=== PATIENT | male | born 1990 | race Caucasian/White ===

== ENCOUNTER 2019-04-10 21:06 | Emergency (ER) | payer BC ==
[2019-04-10] MEDS ORDERED: Sodium Chloride 0.9% 10 ML Syringe FLUSH PRN (22:13)
[2019-04-10] MEDS ORDERED: Acetaminophen/oxyCODONE 325-5 MG Tab PO ONE (22:16)
[2019-04-10] MEDS ORDERED: Sodium Chloride 0.9% 10 ML Syringe FLUSH ONE (22:22)
[2019-04-10] MEDS ORDERED: Iopamidol 612 MG/ML 150 ML Bottle IV SCH (22:30)
--- NOTE | 2019-04-10 23:06 | CRLCT ---
INDICATION: Abdominal pain TECHNIQUE: CT Abdomen and pelvis with i.v. contrast. Coronal and sagittal reformats were obtained. CONTRAST: 117 mL Isovue COMPARISON: None FINDINGS: Lower chest: Unremarkable. Liver: Unremarkable. Spleen: Unremarkable. Pancreas: Unremarkable. Gallbladder: Unremarkable. Kidney: Unremarkable. No kidney or ureteral stones or obstruction seen. Adrenal: Unremarkable. Bowel: Unremarkable. The appendix is normal in appearance and size. Vascular: Unremarkable. Lymph: Unremarkable. Peritoneum: Unremarkable. No pneumoperitoneum is seen. No significant ascites is noted. Pelvis: Unremarkable. Soft tissue: Unremarkable. Bone: Unremarkable for age. IMPRESSION: 1. Unremarkable with no CT correlate for the patient`s symptoms seen. Dictated by Curry Caro MD @ 04/10/2019 11:04:34 PM Please note that all CT scans at this facility use dose modulation, iterative reconstruction, and/or weight-based dosing when appropriate to reduce radiation dose to as low as reasonably achievable. Dictated by: Curry Caro MD @ 04/10/2019 23:04:37 (Electronically Signed)
--- NOTE | 2019-04-10 23:51 | EDM.PDOC ---
ED HPI GENERAL MEDICAL PROBLEM - General Chief Complaint: General Stated Complaint: HERNIA TEAR Time Seen by Provider: 04/10/19 22:10 Source of Information: Reports: Patient History Limitations: Reports: No Limitations - History of Present Illness INITIAL COMMENTS - FREE TEXT/NARRATIVE: This man said that just a couple of hours ago he bent down to pecan picker his son and when he went to raise back up he had a terrible sharp tearing sensation over the right inguinal canal area. He said it hurts very bad and he thinks he might have torn open the old hernia repair. He has not vomited. Right Groin Pain Score (Numeric/FACES): 8 - Related Data Allergies Allergy/AdvReac Type Severity Reaction Status Date / Time Sulfa (Sulfonamide Allergy Hives Verified 04/10/19 21:52 Antibiotics) Home Meds: Home Meds Gabapentin [Neurontin] 800 mg PO TID 04/10/19 [History] LORazepam [Ativan] 1 mg PO DAILY PRN 04/10/19 [History] Past Medical History Genitourinary History: Reports: Renal Calculus Neurological History: Reports: Concussion Psychiatric History: Reports: Anxiety, Depression, PTSD - Infectious Disease History Infectious Disease History: Reports: Chicken Pox - Past Surgical History HEENT Surgical History: Reports: Adenoidectomy, Myringotomy w Tube(s) GI Surgical History: Reports: Hernia Repair/Other, Other (See Below) Other GI Surgeries/Procedures: hernia repair with mesh, spericial cord repair Musculoskeletal Surgical History: Reports: Other (See Below) Other Musculoskeletal Surgeries/Procedures:: surgery on left foot ? tissue removal Social & Family History - Family History Family Medical History: Noncontributory - Tobacco Use Smoking Status *Q: Current Every Day Smoker Years of Tobacco use: 15 Packs/Tins Daily: 1 Second Hand Smoke Exposure: No - Caffeine Use Caffeine Use: Reports: Energy Drinks, Soda - Recreational Drug Use Recreational Drug Use: Yes ED ROS GENERAL - Review of Systems Review Of Systems: ROS reveals no pertinent complaints other than HPI. ED EXAM, GENERAL - Physical Exam Exam: See Below Exam Limited By: No Limitations General Appearance: Alert, WD/WN, Mild Distress Respiratory/Chest: Lungs Clear Cardiovascular: Regular Rate, Rhythm GI/Abdominal: Soft, Non-Tender (Male) Exam: Other (There is some fullness and severe tenderness to the superior approximately 3 cm of the inguinal canal. Palpate this to his abdomen feels like a little mass and is very tender. Of on digital exam nothing in the inguinal canal. Testicles are normal.). No: Testicular Tenderness (L), Testicular Tenderness (R) Extremities: Normal Inspection Course - Vital Signs Last Recorded V/S: Last Vital Signs Temp 36.5 C 04/10/19 22:04 Pulse 68 04/10/19 22:04 Resp 14 04/10/19 22:04 BP 128/68 04/10/19 22:04 Pulse Ox 100 04/10/19 22:04 - Orders/Labs/Meds Orders: Active Orders 24 hr Category Date Time Status Sodium Chloride 0.9% [Normal Saline] 73 ml Med 04/10/19 22:30 Active IV ASDIRECTED Sodium Chloride 0.9% [Saline Flush] Med 04/10/19 22:13 Active 10 ml FLUSH ASDIRECTED PRN Saline Lock Insert [OM.PC] Urgent Oth 04/10/19 22:14 Ordered Medication Orders Sodium Chloride (Normal Saline) 73 mls @ 0 mls/hr IV ASDIRECTED XUAN Last Admin: 04/10/19 22:51 Dose: 3 mls/hr Sodium Chloride (Saline Flush) 10 ml FLUSH ASDIRECTED PRN PRN Reason: Keep Vein Open Last Admin: 04/10/19 22:26 Dose: 10 ml Meds: Medications Generic Name Dose Route Start Last Admin Trade Name Freq PRN Reason Stop Dose Admin Sodium Chloride 73 mls @ 0 mls/hr 04/10/19 22:30 04/10/19 22:51 Normal Saline IV 3 mls/hr ASDIRECTED XUAN Administration KVO Sodium Chloride 10 ml 04/10/19 22:13 04/10/19 22:26 Saline Flush FLUSH 10 ml ASDIRECTED PRN Administration Keep Vein Open Discontinued Medications Generic Name Dose Route Start Last Admin Trade Name Freq PRN Reason Stop Dose Admin Iopamidol 117 ml 04/10/19 22:30 04/10/19 22:50 Isovue-300 (61%) IV 117 ml . DIRECTED XUAN Administration Oxycodone/Acetaminophen 2 tab 04/10/19 22:16 04/10/19 22:26 Percocet 325-5 Mg PO 04/10/19 22:17 2 tab ONETIME ONE Administration Sodium Chloride 10 ml 04/10/19 22:22 04/10/19 22:51 Saline Flush FLUSH 04/10/19 22:23 10 ml ONETIME ONE Administration - Radiology Interpretation Free Text/Narrative:: CT showed no evidence of inguinal hernia Departure - Departure Time of Disposition: 23:48 Disposition: Home, Self-Care 01 Condition: Fair Clinical Impression: History of right inguinal hernia repair, Right groin pain - Discharge Information Referrals: PCP,None [Primary Care Provider] - Additional Instructions: take Percocet 5/325 one or 2 every 4 hours, #15,. This medication can cause sedation and impair driving and could lead to addiction. Referred to surgery clinic and you can expect a call within the next day or 2 to arrange follow-up appointment. - My Orders Last 24 Hours: My Active Orders 04/10/19 22:13 Sodium Chloride 0.9% [Saline Flush] 10 ml FLUSH ASDIRECTED PRN 04/10/19 22:14 Saline Lock Insert [OM.PC] Urgent 04/10/19 22:30 Sodium Chloride 0.9% [Normal Saline] 73 ml IV ASDIRECTED - Assessment/Plan Last 24 Hours: My Active Orders 04/10/19 22:13 Sodium Chloride 0.9% [Saline Flush] 10 ml FLUSH ASDIRECTED PRN 04/10/19 22:14 Saline Lock Insert [OM.PC] Urgent 04/10/19 22:30 Sodium Chloride 0.9% [Normal Saline] 73 ml IV ASDIRECTED
== END 2019-04-11 00:10 | disposition home or self-care (01) ==
LOC: JP.ED 21:06
DX: R10.30 Lower abdominal pain, unspecified (principal); F41.9 Anxiety disorder, unspecified; F32.9 Major depressive disorder, single episode, unspecified; F17.210 Nicotine dependence, cigarettes, uncomplicated; Z98.890 Other specified postprocedural states; Z88.2 Allergy status to sulfonamides; Z79.899 Other long term (current) drug therapy
CPT/HCPCS: 74177; 99284; A9270; J7030

== ENCOUNTER 2019-04-26 08:43 | Day surgery (SDC) | payer MEDICAID ==
[~2019-04-26 08:43] MED LIST: Bupivacaine 0.5% 50 ML MDV ONE; Lidocaine 1% with EPINEPHrine 1:100,000 50 ML MDV ONE; Midazolam 1 MG/ML 2 ML SDV ONE; Propofol 200 MG/20 ML SDV ONE; fentaNYL 100 MCG/2 ML SDV ONE
[2019-04-26] MEDS ORDERED: Acetaminophen 500 MG Tab PO ONE (09:00)
[2019-04-26] MEDS ORDERED: Gabapentin 400 MG Cap PO ONE (09:20)
[2019-04-26] MEDS ORDERED: Scopolamine 1.5 MG Transdermal Patch TOP ONE (09:37)
[2019-04-26] MEDS: Dextrose 5%-Lactated Ringers 1,000 ML IV SCH (09:57)
[2019-04-26] MEDS ORDERED: ceFAZolin 2 GM in Sodium Chloride 0.9% 50 ML IV ONE (10:00)
[2019-04-26] MEDS ORDERED: ceFAZolin 2 GM in Premix Bag 1 BAG IV ONE (10:00)
[2019-04-26] MEDS ORDERED: Midazolam 1 MG/ML 5 ML SDV ONE (10:55)
[2019-04-26] MEDS ORDERED: Ketorolac 60 MG/2 ML SDV ONE (11:05)
[2019-04-26] MEDS ORDERED: Propofol 200 MG/20 ML SDV ONE ×3 (11:07→11:44)
[2019-04-26] MEDS ORDERED: Lactated Ringers 1,000 ML ONE (11:44)
[2019-04-26] MEDS ORDERED: hydrOXYzine HCl 100 MG/2 ML SDV IM ONE ×2 (12:29→14:19)
[2019-04-26] MEDS ORDERED: fentaNYL 100 MCG/2 ML SDV IVPUSH ONE ×2 (12:29→12:48)
[2019-04-26] MEDS ORDERED: Acetaminophen/oxyCODONE 325-5 MG Tab PO ONE (13:13)
[2019-04-26] MEDS ORDERED: Ondansetron 4 MG/2 ML SDV IVPUSH ONE (13:23)
[2019-04-26] MEDS ORDERED: Meperidine PF 100 MG/ML Syringe IM ONE (14:20)
[2019-04-26] MEDS ORDERED: VERIFY SCOP PATCH TOP SCH (15:00)
[2019-04-26] MEDS ORDERED: Ketorolac 30 MG/ML SDV IVPUSH ONE (16:25)
[2019-04-26] MEDS ORDERED: Cyclobenzaprine 10 MG Tab PO PRN (17:02)
[2019-04-26] MEDS ORDERED: Ondansetron 4 MG/2 ML SDV IVPUSH PRN (17:03)
[2019-04-26] MEDS ORDERED: LORazepam 1 MG Tab PO PRN (17:08)
[2019-04-26] MEDS: Acetaminophen/oxyCODONE 325-5 MG Tab PO PRN ×2 (17:22→21:06)
[2019-04-26] MEDS ORDERED: Pantoprazole 40 MG Vial IV ONE (18:00)
[2019-04-26] MEDS ORDERED: QUEtiapine 100 MG Tab PO SCH (21:00)
[2019-04-26] MEDS: Gabapentin 400 MG Cap PO SCH (21:03)
[2019-04-27] MEDS: Dextrose 5%-Lactated Ringers 1,000 ML IV SCH (00:06)
[2019-04-27] MEDS: Acetaminophen/oxyCODONE 325-5 MG Tab PO PRN ×2 (04:01→08:41)
[2019-04-27] MEDS: Ketorolac 10 MG Tab PO SCH ×2 (07:11)
[2019-04-27] MEDS ORDERED: Pantoprazole 40 MG Vial IV ONE (08:00)
[2019-04-27] MEDS: Gabapentin 400 MG Cap PO SCH (08:41)
[2019-04-27] MEDS ORDERED: QUEtiapine 25 MG Tab PO SCH (09:00)
--- NOTE | 2019-04-27 15:22 | DISCH ---
FINAL DIAGNOSIS: Acute right inguinal pain associated with recurrent right inguinal hernia and probable entrapment of the nerves in groin area. ADDITIONAL DIAGNOSES: 1. History of renal calculus. 2. History of concussion. 3. History of anxiety, depression, and posttraumatic stress disorder. 4. Previous history of a right inguinal hernia repair with mesh with spermatic cord repair. 5. Postop pain requiring overnight hospitalization. OPERATIVE PROCEDURES: These were done on 04/26: Right inguinal exploration with: 1. Removal of intraperitoneal mesh. 2. Repair of recurrent incarcerated inguinal hernia with mesh plug technique. 3. Excision of portion of right ilioinguinal nerve, iliohypogastric nerve, and genital branch of genitofemoral nerve (triple neurectomy). SUMMARY: This is a 29-year-old presenting with acute pain associated with a recurrence of a right inguinal hernia. He has some palpable mesh that is quite painful and on exploration had also mesh that had eroded into the intraperitoneal cavity. This was removed. The patient was left with a substantial defect in the inguinal floor and this was repaired with a large mesh plug with what appeared to be a secure closure. The patient with this pain had what appeared to be two nerves running into the previous mesh, one was the ilioinguinal nerve and the other appeared to be a genital branch of genitofemoral nerve. These were excised as was the iliohypogastric nerve to minimize problems with postoperative pain. Despite that, the patient did have quite a bit in the way of pain postoperatively, to the extent that it was felt that he would not be able to be discharged and was kept overnight. This morning, pain appears to be manageable with combination of Percocet and Toradol. He will be discharged home. His was given prescription yesterday for Percocet 5/325 one to two tablets q.4 hours p.r.n. for pain, #40, and Toradol 10 mg p.o. q.i.d. x5 days, and we also instructed to add ibuprofen 600 mg q.i.d. p.r.n. after the Toradol has been completed. Follow up with Dr. Bryant at [facility] on 05/15/2019.
--- NOTE | 2019-05-03 15:24 | OR ---
DATE OF PROCEDURE: 04/26/2019 SURGEON: Braxton Bryant MD PREOPERATIVE DIAGNOSIS: Recurrent incarcerated right inguinal hernia with chronic groin pain. POSTOPERATIVE DIAGNOSES: Right inguinal groin pain associated with: 1. Recurrent incarcerated inguinal hernia. 2. Migration of previously placed mesh into the intraperitoneal location. 3. Probable nerve entrapment by scar potentially involving ilioinguinal, iliohypogastric, and genital branch of genitofemoral nerves. OPERATIVE PROCEDURE: Right inguinal exploration with: 1. Removal of intraperitoneal mesh (80574). 2. Repair of recurrent incarcerated inguinal hernia with mesh plug technique (81087). 3. Division of right ilioinguinal nerve (46027). 4. Division of right iliohypogastric nerve (01323). 5. Division of genital branch of genitofemoral nerve (24224). ANESTHESIA: Local plus IV sedation. AUDITOR TAX: Ca Lopez PA-C. INDICATIONS FOR PROCEDURE: This is a 29-year-old presenting with quite severe inguinal pain. The patient, several years ago, underwent an inguinal hernia repair done in [place], [place]. Since that time, he has had some right groin pain. This became quite a bit worse over the weekend. He proceeded to the emergency room. On examination, the patient was noted to have recurrence of the inguinal hernia, which is not entirely reducible. At this point, there is also an area of mesh on the lateral aspect of the inguinal area, which is quite tender, and generally has some discomfort in the right scrotal area, as well as the medial groin region, likely related to some nerve entrapment. Plan is to proceed with right inguinal exploration. We will likely remove a mesh that might be present and plan to re- repair this with a mesh plug technique. At this point, given the chronic groin pain, we will empirically do a triple neurectomy as well. Potential risks of procedure including bleeding, infection, persistent pain, recurrence of hernia, problems with mesh becoming infected were all reviewed with the patient, and he wishes to proceed. DETAILS OF PROCEDURE: The patient was taken to the operating room and placed in a supine position. IV sedation was administered, after which the abdomen and groin areas were prepped and draped. The right inguinal area was then anesthetized with 1% lidocaine mixed with Marcaine and a previous inguinal incision was reused and extended somewhat medially as well as laterally from the previous incision length. This was carried down through the skin and subcutaneous tissue, and the external oblique aponeurosis was then divided from the external ring somewhat lateral to the internal ring. The patient was noted to have some mesh which was quite painful. This was dissected free, and it became evident that this had eroded at the level of the internal ring into the intraperitoneal location. Some adhesions between what appeared to be appendix epiploica and perhaps some bladder fat were divided away from the mesh, but no viscera was directly attached to it. Upon removal of that mesh, the patient was noted to have a recurrence of the inguinal hernia predominant. The patient had a component of this being lateral to the internal ring, but most of this was a direct hernia medially. Transversalis fascia overlying this was incised and otherwise incarcerated hernia was then reduced. A large mesh plug was then placed into the defect, medially affixed to Shankar's ligament with titanium tacking screws and to the underside of the conjoint tendon medially, laterally, and superiorly. This did come over enough to adequately close off the indirect hernia as well. The mesh was affixed to the underside of the conjoint tendon with horizontal mattress sutures of 0 Vicryl stitch. At that point, the edge of the conjoint tendon was sutured with a running 0 Vicryl stitch to the shelving portion of the inguinal ligament, beginning medially and extending to the area just medial to the inguinal cord. At this point, the iliohypogastric nerve, the ilioinguinal nerve, and genital branch of genitofemoral nerve were each identified, and sequentially a portion of these were excised out to the far lateral aspect of the incision or, in the case of the genital branch of the genitofemoral nerve, to the level of the internal ring. We elected not to displace the flat portion of the mesh plug system over the floor at this time, as the patient is quite thin and will likely have some discomfort associated with inflammatory response from that, and the plug itself appeared to be fairly secure in terms of good fixation to Shankar's ligament, as well as wide coverage of the underside of the conjoint tendon in all directions. The external oblique aponeurosis was then approximated with 3-0 Vicryl stitch, as was the Ced's fascia, and the skin closed with 4-0 Vicryl subcuticular stitch. Dressing was applied. The patient was taken to the recovery room in satisfactory condition. There were no evident complications. Physician occupational therapy assistant, Ca Lopez, played an essential role in assisting in this case, helping to position the patient, retract structures as needed, as well as suturing and cutting sutures when indicated. Her presence improved patient safety and decreased the operative time. Braxton Bryant MD /[id number]
== END 2019-04-27 09:12 | disposition home or self-care (01) ==
LOC: JP.SDS 08:43 → JP.MS 16:52 → JP.SDS 04-27 09:12
PROVIDERS: ATTEND Surgery
DX: K40.31 Unilateral inguinal hernia, with obstruction, without gangrene, recurrent (principal); T83.718A Erosion of other implanted mesh to organ or tissue, initial encounter; K21.9 Gastro-esophageal reflux disease without esophagitis; F17.210 Nicotine dependence, cigarettes, uncomplicated; F41.9 Anxiety disorder, unspecified; F32.9 Major depressive disorder, single episode, unspecified; F43.10 Post-traumatic stress disorder, unspecified; N20.0 Calculus of kidney; Z88.2 Allergy status to sulfonamides; Z79.899 Other long term (current) drug therapy
CPT/HCPCS: 49521; 64772; 88305; 94762; A9270; C1713; C1781; C9113; J0690; J1885; J2175; J2250; J2405; J2704; J3010; J3410; J3490; J7042; J7050; J7120

== ENCOUNTER 2019-04-30 17:47 | Emergency (ER) | payer MEDICAID ==
--- NOTE | 2019-04-30 19:41 | EDM.PDOC ---
ED HPI GENERAL MEDICAL PROBLEM - General Chief Complaint: Abdominal Pain Time Seen by Provider: 04/30/19 19:00 Source of Information: Reports: Patient History Limitations: Reports: No Limitations - History of Present Illness INITIAL COMMENTS - FREE TEXT/NARRATIVE: 29-year-old with history of recent right inguinal hernia repair presents with postoperative pain. He reports pain in his right inguinal area, radiating into the testicle and the right hip. The pain is severe. It is worse with moving. Severity has been constant since discharge 3 days ago. He is having no fevers. No urinary symptoms. He is tolerating by mouth and having bowel movements. He reports his testicular swelling is actually down. Has been intermittently taking Percocet and ibuprofen. Left Lower Abdomen Pain Score (Numeric/FACES): 8 - Related Data Allergies Allergy/AdvReac Type Severity Reaction Status Date / Time Sulfa (Sulfonamide Allergy Hives Verified 04/30/19 18:16 Antibiotics) Home Meds: Home Meds Gabapentin [Neurontin] 800 mg PO TID 04/10/19 [History] LORazepam [Ativan] 1 mg PO DAILY PRN 04/10/19 [History] QUEtiapine [SEROquel] 50 mg PO BEDTIME 04/21/19 [History] Ketorolac [Toradol] 10 mg PO Q6H #20 tab 04/27/19 [Rx] oxyCODONE HCl/Acetaminophen [Oxycodone-Acetaminophen 5-325] 1 - 2 each PO Q4H PRN #40 tablet 04/27/19 [Rx] Past Medical History HEENT History: Reports: None Cardiovascular History: Reports: Arrhythmia Gastrointestinal History: Reports: None Genitourinary History: Reports: Renal Calculus Musculoskeletal History: Reports: None Neurological History: Reports: Concussion Psychiatric History: Reports: ADHD, Anxiety, Depression, Panic Attack, PTSD - Infectious Disease History Infectious Disease History: Reports: Chicken Pox - Past Surgical History Head Surgeries/Procedures: Reports: None HEENT Surgical History: Reports: Adenoidectomy, Myringotomy w Tube(s) Cardiovascular Surgical History: Reports: None GI Surgical History: Reports: Hernia Repair/Other, Other (See Below) Other GI Surgeries/Procedures: hernia repair x2 with mesh, spericial cord repair Male Surgical History: Reports: None Neurological Surgical History: Reports: None Musculoskeletal Surgical History: Reports: Other (See Below) Other Musculoskeletal Surgeries/Procedures:: surgery on left foot ? tissue removal Dermatological Surgical History: Reports: None Social & Family History - Family History Family Medical History: Noncontributory - Tobacco Use Smoking Status *Q: Current Every Day Smoker Years of Tobacco use: 15 Packs/Tins Daily: 1 Used Tobacco, but Quit: No Second Hand Smoke Exposure: No - Caffeine Use Caffeine Use: Reports: Soda - Recreational Drug Use Recreational Drug Use: No ED ROS GENERAL - Review of Systems Review Of Systems: See Below Constitutional: Reports: No Symptoms HEENT: Reports: No Symptoms Respiratory: Reports: No Symptoms Cardiovascular: Reports: No Symptoms Endocrine: Reports: No Symptoms GI/Abdominal: Reports: Abdominal Pain : Reports: No Symptoms Musculoskeletal: Reports: No Symptoms Skin: Reports: No Symptoms Neurological: Reports: No Symptoms Psychiatric: Reports: No Symptoms Hematologic/Lymphatic: Reports: No Symptoms ED EXAM, GI/ABD - Physical Exam Exam: See Below Exam Limited By: No Limitations General Appearance: Alert, No Apparent Distress Ears: Normal External Exam Nose: Normal Inspection Throat/Mouth: Normal Inspection Head: Atraumatic, Normocephalic Neck: Normal Inspection Respiratory/Chest: Lungs Clear, Normal Breath Sounds Cardiovascular: Regular Rate, Rhythm GI/Abdominal Exam: Soft, Other (surgical incision right lower abdomen, appears wells healing. Diffuse tenderness around incision as well as right testical. No testicular swelling. ) (Male) Exam: Scrotum Tenderness (R) Back Exam: Normal Inspection Extremities: Normal Inspection, Normal Range of Motion Neurological: Alert, Oriented Course - Vital Signs Last Recorded V/S: Last Vital Signs Temp 35.9 C 04/30/19 18:19 Pulse 69 04/30/19 18:19 Resp 16 04/30/19 18:19 BP 133/81 04/30/19 18:19 Pulse Ox 98 04/30/19 18:19 - Re-Assessments/Exams Free Text/Narrative Re-Assessment/Exam: 29 yo presents with concerns of post-operative pain after right hernia repair. No acute change today. No other concerning findings by exam/history. He has not been taking pain meds scheduled, counseled on this. Discussed with surgeon, agrees with plan. Has follow-up planned this week. Will call surgeon or return to ER for worsening. 04/30/19 19:49 Departure - Departure Time of Disposition: 19:39 Disposition: Home, Self-Care 01 Clinical Impression: Post-operative pain - Discharge Information *PRESCRIPTION DRUG MONITORING PROGRAM REVIEWED*: Yes *COPY OF PRESCRIPTION DRUG MONITORING REPORT IN PATIENT OLAF: No Instructions: Pain Relief Before and After Surgery Referrals: Braxton Bryant MD [Primary Care Provider] - Forms: ED Department Discharge Additional Instructions: Please take the pain medications as prescribed: 2 tabs of percocet every 4 hrs and toradol every 6 hrs Continue to use ice packs and support of the testicles with a towel Follow up with your surgeon as planned this week Call your surgeon for increasing pain
== END 2019-04-30 19:49 | disposition home or self-care (01) ==
LOC: JP.ED 17:47
DX: G89.18 Other acute postprocedural pain (principal); R10.31 Right lower quadrant pain; F32.9 Major depressive disorder, single episode, unspecified; F90.9 Attention-deficit hyperactivity disorder, unspecified type; F41.0 Panic disorder [episodic paroxysmal anxiety]; F17.210 Nicotine dependence, cigarettes, uncomplicated; Z88.2 Allergy status to sulfonamides; Z79.899 Other long term (current) drug therapy; Z98.890 Other specified postprocedural states
CPT/HCPCS: 99283

== ENCOUNTER 2019-09-03 11:27 | Emergency (ER) | payer MEDICAID ==
[2019-09-03] MEDS ORDERED: Ondansetron 4 MG/2 ML SDV IVPUSH ONE (11:53)
[2019-09-03] MEDS ORDERED: HYDROmorphone 0.5 MG/0.5 ML Syringe IVPUSH ONE (11:54)
[2019-09-03] MEDS ORDERED: Sodium Chloride 0.9% 1,000 ML IV SCH ×2 (12:00→12:45)
--- NOTE | 2019-09-03 12:34 | EDM.PDOC ---
ED HPI GENERAL MEDICAL PROBLEM - General Chief Complaint: Abdominal Pain Stated Complaint: STOMACH PAIN Time Seen by Provider: 09/03/19 11:40 Source of Information: Reports: Patient, Family, Other (pt has a history of drug abuse but he has been clean He is having abdomanal pain so he will have a drug screen to be sure there is no street drug usuiage. ) - History of Present Illness Onset: Today, Other (pain came on suddenly in the nite. He has been vomiting and perry has had diarrhea. ) Duration: Hour(s): Location: Reports: Abdomen, Generalized, Other (pt feels generally ill. His Sig other hasalso been ill. ) Associated Symptoms: Reports: Headaches, Nausea/Vomiting, Weakness, Other (pt has been chilling. ) Upper Abdomen Pain Score (Numeric/FACES): 8 - Related Data Allergies Allergy/AdvReac Type Severity Reaction Status Date / Time Sulfa (Sulfonamide Allergy Hives Verified 09/03/19 11:58 Antibiotics) Home Meds: Home Meds Gabapentin [Neurontin] 800 mg PO TID 04/10/19 [History] LORazepam [Ativan] 1 mg PO DAILY PRN 04/10/19 [History] busPIRone [Buspar] 10 mg PO DAILY 09/03/19 [History] Past Medical History HEENT History: Reports: None Cardiovascular History: Reports: Arrhythmia Gastrointestinal History: Reports: None Genitourinary History: Reports: Renal Calculus Musculoskeletal History: Reports: None Neurological History: Reports: Concussion Psychiatric History: Reports: ADHD, Anxiety, Depression, Panic Attack, PTSD - Infectious Disease History Infectious Disease History: Reports: Chicken Pox - Past Surgical History HEENT Surgical History: Reports: Adenoidectomy, Myringotomy w Tube(s) GI Surgical History: Reports: Hernia Repair/Other, Other (See Below) Other GI Surgeries/Procedures: hernia repair x2 with mesh, spericial cord repair Musculoskeletal Surgical History: Reports: Other (See Below) Other Musculoskeletal Surgeries/Procedures:: surgery on left foot ? tissue removal Social & Family History - Family History Family Medical History: Noncontributory - Tobacco Use Smoking Status *Q: Current Some Day Smoker Years of Tobacco use: 13 Packs/Tins Daily: 0.5 - Caffeine Use Caffeine Use: Reports: Coffee, Soda - Recreational Drug Use Recreational Drug Use: No ED ROS GENERAL - Review of Systems Review Of Systems: See Below Constitutional: Reports: Malaise, Weakness HEENT: Reports: No Symptoms Respiratory: Reports: No Symptoms Cardiovascular: Reports: No Symptoms Endocrine: Reports: No Symptoms GI/Abdominal: Reports: Abdominal Pain, Other (pain started in the upper abdoman and moved lower. ) : Reports: No Symptoms Musculoskeletal: Reports: No Symptoms Skin: Reports: No Symptoms Neurological: Reports: No Symptoms ED EXAM, GI/ABD - Physical Exam Exam: See Below Text/Narrative:: pt arrived with a 2 day history of nausea and vomiting and multple watery stools. He has had pain which started in the upper abdoman and then moved to the rt lower abdoman. He rates his pain a 8-9. He has not noted blood in the stools. Exam Limited By: No Limitations General Appearance: Alert, Anxious, Moderate Distress Ears: Normal TMs Nose: Normal Inspection Throat/Mouth: Normal Inspection Head: Atraumatic Neck: Normal Inspection Respiratory/Chest: No Respiratory Distress Cardiovascular: Regular Rate, Rhythm GI/Abdominal Exam: Other (pt is quite tender in the rt lower abdoman. ) (Male) Exam: Deferred Rectal (Males) Exam: Deferred Back Exam: Normal Inspection Extremities: Normal Inspection Neurological: Alert, Oriented, Normal Cognition Psychiatric: Normal Affect Course - Vital Signs Last Recorded V/S: Last Vital Signs Temp 36.8 C 09/03/19 12:07 Pulse 98 09/03/19 14:05 Resp 16 09/03/19 14:05 BP 127/78 09/03/19 14:05 Pulse Ox 99 09/03/19 14:05 - Orders/Labs/Meds Orders: Active Orders 24 hr Category Date Time Status Loperamide [Imodium] Med 09/03/19 14:32 Once 2 mg PO ONETIME ONE Sodium Chloride 0.9% [Normal Saline] 1,000 ml Med 09/03/19 12:00 Active IV ASDIRECTED Sodium Chloride 0.9% [Normal Saline] 1,000 ml Med 09/03/19 12:45 Active IV ASDIRECTED Sodium Chloride 0.9% [Saline Flush] Med 09/03/19 13:17 Active 10 ml FLUSH ONETIME PRN Medication Orders Sodium Chloride (Normal Saline) 1,000 mls @ 999 mls/hr IV ASDIRECTED XUAN Last Admin: 09/03/19 12:11 Dose: 999 mls/hr Sodium Chloride (Normal Saline) 1,000 mls @ 999 mls/hr IV ASDIRECTED XUAN Last Admin: 09/03/19 14:11 Dose: 999 mls/hr Loperamide HCl (Imodium) 2 mg PO ONETIME ONE Stop: 09/03/19 14:33 Sodium Chloride (Saline Flush) 10 ml FLUSH ONETIME PRN PRN Reason: PER RADIOLOGY PROTOCOL Last Admin: 09/03/19 13:23 Dose: 10 ml Labs: Laboratory Tests 09/03/19 09/03/19 09/03/19 Range/Units 11:52 12:04 12:04 WBC 10.1 (4.5-11.0) K/uL RBC 4.82 (4.30-5.90) M/uL Hgb 15.6 H (12.0-15.0) g/dL Hct 44.6 (40.0-54.0) % MCV 93 (80-98) fL MCH 32 H (27-31) pg MCHC 35 (32-36) % Plt Count 341 (150-400) K/uL Neut % (Auto) 67 H (36-66) % Lymph % (Auto) 23 L (24-44) % [place] % (Auto) 7 H (2-6) % Eos % (Auto) 2 (2-4) % Baso % (Auto) 0 (0-1) % Sodium (140-148) mmol/L Potassium (3.6-5.2) mmol/L Chloride (100-108) mmol/L Carbon Dioxide (21-32) mmol/L Anion Gap (5.0-14.0) mmol/L BUN (7-18) mg/dL Creatinine (0.8-1.3) mg/dL Est Cr Clr Drug Dosing mL/min Estimated GFR (MDRD) (>60) Glucose (74-106) mg/dL Calcium (8.5-10.1) mg/dL Total Bilirubin (0.2-1.0) mg/dL AST (15-37) U/L ALT (12-78) U/L Alkaline Phosphatase (46-116) U/L C-Reactive Protein (0.0-0.3) mg/dL Total Protein (6.4-8.2) g/dL Albumin (3.4-5.0) g/dL Globulin (2.3-3.5) g/dL Albumin/Globulin Ratio (1.2-2.2) Urine Color Yellow (YELLOW) Urine Appearance Cloudy A (CLEAR) Urine pH 7.5 (5.0-8.0) Ur Specific Nathalie 1.020 (1.008-1.030) Urine Protein Negative (NEGATIVE) mg/dL Urine Glucose (UA) Negative (NEGATIVE) mg/dL Urine Ketones Negative (NEGATIVE) mg/dL Urine Occult Blood Negative (NEGATIVE) Urine Nitrite Negative (NEGATIVE) Urine Bilirubin Negative (NEGATIVE) Urine Urobilinogen 0.2 (0.2-1.0) EU/dL Ur Leukocyte Esterase Negative (NEGATIVE) Urine RBC 0-5 (0-5) Urine WBC 0-5 (0-5) Ur Epithelial Cells Not seen Amorphous Sediment Moderate Urine Bacteria Not seen Urine Mucus Not seen Urine Opiates Screen Negative (NEGATIVE) Ur Oxycodone Screen Negative (NEGATIVE) Urine Methadone Screen Negative (NEGATIVE) Ur Propoxyphene Screen Negative (NEGATIVE) Ur Barbiturates Screen Negative (NEGATIVE) Ur Tricyclics Screen Negative (NEGATIVE) Ur Phencyclidine Scrn Negative (NEGATIVE) Ur Amphetamine Screen Negative (NEGATIVE) U Methamphetamines Scrn Negative (NEGATIVE) Urine MDMA Screen Negative (NEGATIVE) U Benzodiazepines Scrn Negative (NEGATIVE) U Cocaine Metab Screen Negative (NEGATIVE) U Marijuana (THC) Screen Negative (NEGATIVE) 09/03/19 Range/Units 12:05 WBC (4.5-11.0) K/uL RBC (4.30-5.90) M/uL Hgb (12.0-15.0) g/dL Hct (40.0-54.0) % MCV (80-98) fL MCH (27-31) pg MCHC (32-36) % Plt Count (150-400) K/uL Neut % (Auto) (36-66) % Lymph % (Auto) (24-44) % [place] % (Auto) (2-6) % Eos % (Auto) (2-4) % Baso % (Auto) (0-1) % Sodium 138 L (140-148) mmol/L Potassium 3.8 (3.6-5.2) mmol/L Chloride 103 (100-108) mmol/L Carbon Dioxide 25 (21-32) mmol/L Anion Gap 13.8 (5.0-14.0) mmol/L BUN 19 H (7-18) mg/dL Creatinine 1.0 (0.8-1.3) mg/dL Est Cr Clr Drug Dosing 105.22 mL/min Estimated GFR (MDRD) > 60 (>60) Glucose 90 (74-106) mg/dL Calcium 9.1 (8.5-10.1) mg/dL Total Bilirubin 0.9 (0.2-1.0) mg/dL AST 42 H (15-37) U/L ALT 47 (12-78) U/L Alkaline Phosphatase 81 (46-116) U/L C-Reactive Protein < 0.05 (0.0-0.3) mg/dL Total Protein 7.7 (6.4-8.2) g/dL Albumin 4.3 (3.4-5.0) g/dL Globulin 3.4 (2.3-3.5) g/dL Albumin/Globulin Ratio 1.3 (1.2-2.2) Urine Color (YELLOW) Urine Appearance (CLEAR) Urine pH (5.0-8.0) Ur Specific Nathalie (1.008-1.030) Urine Protein (NEGATIVE) mg/dL Urine Glucose (UA) (NEGATIVE) mg/dL Urine Ketones (NEGATIVE) mg/dL Urine Occult Blood (NEGATIVE) Urine Nitrite (NEGATIVE) Urine Bilirubin (NEGATIVE) Urine Urobilinogen (0.2-1.0) EU/dL Ur Leukocyte Esterase (NEGATIVE) Urine RBC (0-5) Urine WBC (0-5) Ur Epithelial Cells Amorphous Sediment Urine Bacteria Urine Mucus Urine Opiates Screen (NEGATIVE) Ur Oxycodone Screen (NEGATIVE) Urine Methadone Screen (NEGATIVE) Ur Propoxyphene Screen (NEGATIVE) Ur Barbiturates Screen (NEGATIVE) Ur Tricyclics Screen (NEGATIVE) Ur Phencyclidine Scrn (NEGATIVE) Ur Amphetamine Screen (NEGATIVE) U Methamphetamines Scrn (NEGATIVE) Urine MDMA Screen (NEGATIVE) U Benzodiazepines Scrn (NEGATIVE) U Cocaine Metab Screen (NEGATIVE) U Marijuana (THC) Screen (NEGATIVE) Meds: Medications Generic Name Dose Route Start Last Admin Trade Name Freq PRN Reason Stop Dose Admin Sodium Chloride 1,000 mls @ 999 mls/hr 09/03/19 12:00 09/03/19 12:11 Normal Saline IV 999 mls/hr ASDIRECTED XUAN Administration Sodium Chloride 1,000 mls @ 999 mls/hr 09/03/19 12:45 09/03/19 14:11 Normal Saline IV 999 mls/hr ASDIRECTED XUAN Administration Loperamide HCl 2 mg 09/03/19 14:32 Imodium PO 09/03/19 14:33 ONETIME ONE Sodium Chloride 10 ml 09/03/19 13:17 09/03/19 13:23 Saline Flush FLUSH 10 ml ONETIME PRN Administration PER RADIOLOGY PROTOCOL Discontinued Medications Generic Name Dose Route Start Last Admin Trade Name Freq PRN Reason Stop Dose Admin Hydrocodone Bitart/Acetaminophen 1 tab 09/03/19 14:31 [place] 325-5 Mg PO 09/03/19 14:32 ONETIME ONE Hydromorphone HCl 0.5 mg 09/03/19 11:54 09/03/19 12:16 Dilaudid IVPUSH 09/03/19 11:55 0.5 mg ONETIME ONE Administration Sodium Chloride 71 mls @ 3 mls/sec 09/03/19 13:17 09/03/19 13:23 Normal Saline IV 09/03/19 13:18 3 mls/sec ONETIME ONE Administration Iopamidol 100 ml 09/03/19 13:17 09/03/19 13:23 Isovue-300 (61%) IV 100 ml . DIRECTED PRN Administration RADIOLOGY EXAM Ondansetron HCl 4 mg 09/03/19 11:53 09/03/19 12:13 Zofran IVPUSH 09/03/19 11:54 4 mg ONETIME ONE Administration - Re-Assessments/Exams Free Text/Narrative Re-Assessment/Exam: 09/03/19 13:11 pt has a normal wbc and crp but he is quite tender in the rt lower abdoman. He is mildly guarded. 09/03/19 14:33 cat scan of the abdoman was neg. He is feeling better after the fluids. Departure - Departure Time of Disposition: 14:33 Disposition: Home, Self-Care 01 Condition: Fair Clinical Impression: Viral illness - Discharge Information Referrals: PCP,None [Primary Care Provider] - Forms: ED Department Discharge Care Plan Goals: clear liquid diet for the next 36 hours. If pt has further diarrhea imodium 1- 2 tabs q6h prn , tylenol and motrin as needed for discomfort. Sepsis Event Note - Evaluation Sepsis Screening Result: No Definite Risk - Focused Exam Vital Signs: Vital Signs Temp Pulse Resp BP Pulse Ox 09/03/19 14:05 98 16 127/78 99 09/03/19 13:05 90 130/77 09/03/19 12:07 36.8 C 95 16 132/87 100 09/03/19 11:38 36.8 C 102 H 16 132/87 100 Date Exam was Performed: 09/03/19 Time Exam was Performed: 14:33 - My Orders Last 24 Hours: My Active Orders 09/03/19 12:00 Sodium Chloride 0.9% [Normal Saline] 1,000 ml IV ASDIRECTED 09/03/19 12:45 Sodium Chloride 0.9% [Normal Saline] 1,000 ml IV ASDIRECTED 09/03/19 13:17 Sodium Chloride 0.9% [Saline Flush] 10 ml FLUSH ONETIME PRN 09/03/19 14:32 Loperamide [Imodium] 2 mg PO ONETIME ONE - Assessment/Plan Last 24 Hours: My Active Orders 09/03/19 12:00 Sodium Chloride 0.9% [Normal Saline] 1,000 ml IV ASDIRECTED 09/03/19 12:45 Sodium Chloride 0.9% [Normal Saline] 1,000 ml IV ASDIRECTED 09/03/19 13:17 Sodium Chloride 0.9% [Saline Flush] 10 ml FLUSH ONETIME PRN 09/03/19 14:32 Loperamide [Imodium] 2 mg PO ONETIME ONE
[2019-09-03] MEDS ORDERED: Iopamidol 612 MG/ML 100 ML Bottle IV PRN (13:17)
[2019-09-03] MEDS ORDERED: Sodium Chloride 0.9% 10 ML Syringe FLUSH PRN (13:17)
[2019-09-03] MEDS ORDERED: Sodium Chloride 0.9% 71 ML IV ONE (13:17)
--- NOTE | 2019-09-03 14:14 | CRLCT ---
INDICATION: Right lower abdomen pain. TECHNIQUE: CT abdomen and pelvis acquired with 100 cc Isovue-300 IV contrast. COMPARISON: April 10, 2019. FINDINGS: Lower chest: Unremarkable. Liver: Unremarkable. Normal in size and attenuation. No masses. Gallbladder and bile ducts: Unremarkable. No stones or inflammation. No biliary dilatation. Pancreas: Unremarkable. No mass or inflammation. Spleen: Unremarkable. Normal in size. No masses. Adrenal glands: Unremarkable. No nodules. Kidneys: Unremarkable. No masses, stones, or hydronephrosis. GI tract: Unremarkable. Normal in caliber. No sign of mass or inflammation. Normal appendix. Vasculature: Unremarkable. Mesenteric arteries are patent. Lymph nodes: No lymphadenopathy. Omentum/Peritoneum/Abdominal Wall: Unremarkable. No sign of mass or infiltration. No free air or significant free fluid. Pelvis: There are postsurgical changes in the right inguinal region presumably from a hernia repair. Mild soft tissue thickening is present in this area. Remainder of the pelvis is unremarkable. Bones: Unremarkable for age. IMPRESSION: Right inguinal postoperative changes presumably from an inguinal hernia repair appear within normal limits. Appendix and GI tract are normal. No other acute or specific finding to explain right lower abdomen pain. Dictated by Jordon Martino MD @ 09/03/2019 2:13:31 PM Please note that all CT scans at this facility use dose modulation, iterative reconstruction, and/or weight-based dosing when appropriate to reduce radiation dose to as low as reasonably achievable. Dictated by: Jordon Martino MD @ 09/03/2019 14:13:39 (Electronically Signed)
[2019-09-03] MEDS ORDERED: Acetaminophen/HYDROcodone 325-5 MG Tab PO ONE (14:31)
[2019-09-03] MEDS ORDERED: Loperamide 2 MG Cap PO ONE (14:32)
== END 2019-09-03 15:16 | disposition home or self-care (01) ==
LOC: JP.ED 11:27
DX: B34.9 Viral infection, unspecified (principal); F41.0 Panic disorder [episodic paroxysmal anxiety]; F32.9 Major depressive disorder, single episode, unspecified; F17.210 Nicotine dependence, cigarettes, uncomplicated; Z88.2 Allergy status to sulfonamides; Z79.899 Other long term (current) drug therapy
CPT/HCPCS: 36415; 74177; 80053; 80305; 81001; 85025; 86140; 96361; 96374; 96375; 99284; A9270; J1170; J2405; J7030; J7050; Q9967